=== PATIENT | male | born 2000 | race Two or more races ===

== ENCOUNTER 2019-08-15 16:54 | Emergency (ER) | payer SELFPAY ==
[2019-08-15 17:07] VITALS: BP 138/84
--- NOTE | 2019-08-15 19:28 | ER Document Report ---
ED Eye Complaint - General Chief Complaint: Eye Problem Stated Complaint: EYE PAIN HEADACHE Time Seen by Provider: 08/15/19 19:27 Primary Care Provider: FREDRICK ENCISO MD [ACTIVE STAFF] - Follow up in 3-5 days (call for a follow up appointment if not improving in 2 days) Mode of Arrival: Ambulatory Information source: Patient Notes: 18-year-old male no previous medical problems presents to the emergency room complaining of left eye redness with discharge and draining for the past 3 days. He denies any trauma or injury. No ill contacts. No COVID-19 exposure, no risk from the 19. Denies any use of contacts. States he has been trying [id number] eyedrops and allergy medications without relief. States the draining got worse today. Denies any changes in his vision. TRAVEL OUTSIDE OF THE [place] IN LAST 30 DAYS: No - Related Data Allergies/Adverse Reactions: No Known Allergies Allergy (Unverified 08/15/19 17:06) Past Medical History - General Information source: Patient - Social History Smoking Status: Current Every Day Smoker - Vapes Chew tobacco use (# tins/day): No Drug Abuse: None Family History: Reviewed & Not Pertinent Patient has homicidal ideation: No Review of Systems - Review of Systems Constitutional: No symptoms reported EENT: Eye discharge, Tearing. denies: Blurred vision, Double vision, Nose congestion, Sinus pressure Cardiovascular: No symptoms reported Respiratory: No symptoms reported Skin: No symptoms reported Hematologic/Lymphatic: No symptoms reported Neurological/Psychological: No symptoms reported -: Yes All other systems reviewed and negative Physical Exam - Vital signs Vitals: Temp 98.3 F 08/15/19 16:59 - General General appearance: Appears well, Alert In distress: Mild - HEENT Head: Normocephalic, Atraumatic Eyes: Normal Conjunctiva: Injected, Purulent discharge Cornea: Normal Extraocular movements intact: Yes Eyelashes: Matted Pupils: PERRL - Respiratory Respiratory status: No respiratory distress Chest status: Nontender Breath sounds: Normal Chest palpation: Normal - Cardiovascular Rhythm: Regular Heart sounds: Normal auscultation Murmur: No - Neurological Neuro grossly intact: Yes Cognition: Normal Orientation: AAOx4 [place] Coma Scale Eye Opening: Spontaneous Will Coma Scale Verbal: Oriented [place] Coma Scale Motor: Obeys Commands [place] Coma Scale Total: 15 Speech: Normal Motor strength normal: LUE, RUE, LLE, RLE Sensory: Normal - Skin Skin Temperature: Warm Skin Moisture: Dry Skin Color: Normal Course - Re-evaluation Re-evalutation: 08/15/19 19:58 No known COVID-19 exposure, no COVID-19 risk factors. Counseled patient on the use of eyedrops as prescribed. Good handwashing. Outpatient follow-up with an package line operator if not improving in 2 to 3 days. Patient was provided with on- call package line operator. Patient was given strict return to the emergency room guidelines. Return for any new or worsening symptoms. All questions were answered. Patient verbalized understanding agrees with plan of care. 08/15/19 23:14 - Vital Signs Vital signs: Temp Pulse Resp BP Pulse Ox 98.3 F 97 H 17 138/84 H 97 08/15/19 17:06 08/15/19 17:06 08/15/19 17:06 08/15/19 17:06 08/15/19 17:06 Discharge - Discharge Clinical Impression: Left conjunctivitis Qualifiers: Conjunctivitis type: acute Acute conjunctivitis type: unspecified Qualified Code(s): H10.32 - Unspecified acute conjunctivitis, left eye Condition: Stable Disposition: HOME, SELF-CARE Instructions: Conjunctivitis ([facility]), Eyedrop Use ([facility]) Additional Instructions: Use eyedrops as prescribed. Good handwashing. Outpatient follow-up with o phthalmology as discussed. Return for any new or worsening symptoms. Referrals: FREDRICK ENCISO MD [ACTIVE STAFF] - Follow up in 3-5 days (call for a follow up appointment if not improving in 2 days)
[2019-08-15] MEDS ORDERED: POLYMYXIN B SULFATE/TMP OPH SOLN (10 ML/ER DISP) OS SCH (21:00)
== END 2019-08-15 20:29 | disposition home or self-care (01) ==
LOC: ER 16:54
DX: H10.32 Unspecified acute conjunctivitis, left eye (principal); H57.12 Ocular pain, left eye; R51 Headache; F17.290 Nicotine dependence, other tobacco product, uncomplicated
CPT/HCPCS: 99283; J3490

== ENCOUNTER 2019-08-21 18:06 | Emergency (ER) | payer SELFPAY ==
--- NOTE | 2019-08-21 19:29 | ER Document Report ---
ED Eye Complaint - General Chief Complaint: Eye Pain Stated Complaint: EYE PAIN Time Seen by Provider: 08/21/19 18:51 Mode of Arrival: Ambulatory Information source: Patient Notes: 18-year-old male no previous medical problems presents to the emergency room with persistent drainage and erythema to his left eye. Symptoms ongoing for 10 days. Patient was seen here 6 days ago by me and was discharged home on Polytrim eyedrops and referred to ophthalmology. Patient states he forgot about the referral and never followed up with ophthalmology after he was discharged. States symptoms are slightly improving but have not gone away. Patient had traveled 12 days ago to [place], [place] but has been in the area for the past 12 days. He has had no known ill contacts. Works from home no COVID-19 exposure, denies any use of contacts or glasses. He denies any visual changes, no blurring of vision, no eye pain. TRAVEL OUTSIDE OF THE [place] IN LAST 30 DAYS: No - Related Data Allergies/Adverse Reactions: No Known Allergies Allergy (Unverified 08/15/19 17:06) Past Medical History - General Information source: Patient - Social History Smoking Status: Current Every Day Smoker - Vapes Chew tobacco use (# tins/day): No Frequency of alcohol use: None Drug Abuse: None Lives with: Alone Family History: Reviewed & Not Pertinent Patient has homicidal ideation: No Review of Systems - Review of Systems Constitutional: No symptoms reported EENT: Eye discharge, Tearing. denies: Eye pain, Blurred vision Cardiovascular: No symptoms reported Respiratory: No symptoms reported Musculoskeletal: No symptoms reported Skin: No symptoms reported Neurological/Psychological: No symptoms reported -: Yes All other systems reviewed and negative Physical Exam - Vital signs Vitals: Temp Pulse Resp BP Pulse Ox 98.0 F 77 18 144/86 H 96 08/21/19 18:10 08/21/19 18:10 08/21/19 18:10 08/21/19 18:10 08/21/19 18:10 - General General appearance: Appears well, Alert In distress: Mild - HEENT Head: Normocephalic, Atraumatic Eyes: No: Pale conjunctiva, Periorbital ecchymosis, Periorbital edema, Scleral icterus Conjunctiva: Injected - Decreased erythema noted to the left eye. There is clear drainage noted. Eyelashes are not matted. Extraocular movements intact: Yes Eyelashes: Normal Pupils: PERRL Fundascopic: Normal Visual aguilar normal: Yes Pharynx: Normal - Respiratory Respiratory status: No respiratory distress Chest status: Nontender Breath sounds: Normal Chest palpation: Normal - Cardiovascular Rhythm: Regular Heart sounds: Normal auscultation Murmur: No - Neurological Neuro grossly intact: Yes Cognition: Normal Orientation: AAOx4 [place] Coma Scale Eye Opening: Spontaneous [place] Coma Scale Verbal: Oriented Will Coma Scale Motor: Obeys Commands [place] Coma Scale Total: 15 Speech: Normal Motor strength normal: LUE, RUE, LLE, RLE Sensory: Normal - Skin Skin Temperature: Warm Skin Moisture: Dry Skin Color: Normal Course - Re-evaluation Re-evalutation: 08/21/19 19:33 When compared to previous visit 6 days ago there is decreased erythema of the left eye, eyelashes are not matted, there is clear drainage noted. No visual changes. Patient was counseled that we going to change his antibiotic eyedrops. Stop the Polytrim, outpatient follow-up with ophthalmology as previously discussed if not improving in 2 days. Patient was provided with on-call physician. Patient with no COVID-19 exposure, discussed testing for COVID-19, patient did not want to be tested patient was given strict return to the emergency room guidelines. Return for any new or worsening symptoms. All questions were answered. Patient verbalized understanding and agrees with plan of care. 08/21/19 19:37 - Vital Signs Vital signs: Temp Pulse Resp BP Pulse Ox 98.0 F 77 18 144/86 H 96 08/21/19 18:12 08/21/19 18:10 08/21/19 18:10 08/21/19 18:10 08/21/19 18:10 Discharge - Discharge Clinical Impression: Conjunctivitis, left eye Qualifiers: Conjunctivitis type: unspecified Qualified Code(s): H10.9 - Unspecified conjunctivitis Condition: Stable Disposition: HOME, SELF-CARE Instructions: Conjunctivitis ([facility]) Additional Instructions: Good handwashing, stop Polytrim eyedrops, use Vigamox as prescribed. Follow-up with ophthalmology if not improving in 2 days. Return for any new or worsening symptoms. Prescriptions: Moxifloxacin HCl [Vigamox 0.5% Oph Soln 3 ml] 1 drop OP TID 7 Days #1 bottle Referrals: CHAVA CURRY, DO [ACTIVE STAFF] - Follow up tomorrow (Call tomorrow for an outpatient follow-up appointment.)
[2019-08-21 19:50] VITALS: BP 138/78
== END 2019-08-21 19:58 | disposition home or self-care (01) ==
LOC: ER 18:06
DX: H10.9 Unspecified conjunctivitis (principal); H57.12 Ocular pain, left eye; F17.290 Nicotine dependence, other tobacco product, uncomplicated
CPT/HCPCS: 99283